=== PATIENT | male | born 1955 | race Caucasian/White ===

== ENCOUNTER → 2023-08-27 | Outpatient (CLI) | payer MEDICARE ==
--- NOTE | 2023-08-28 05:34 | MR ---
EXAMINATION TYPE: MR knee LT wo con DATE OF EXAM: 08/27/2023 COMPARISON: Outside left knee x-ray August 20, 2023 HISTORY: Left knee pain and swelling, Hx left knee surgery TECHNIQUE: Multiplanar, multisequence images of the knee is performed without IV contrast. FINDINGS: MEDIAL MENISCUS: Medial protrusion medial meniscus on coronal images. Abnormal signal central body ex tends into posterior horn. Posterior horn has fraying and increased signal extending to articular maria dolores face. LATERAL MENISCUS: Horizontal increased signal posterior horn toward the central body does not definit ively extend to articular surface. CRUCIATE LIGAMENTS: The anterior and posterior cruciate ligaments are intact and unremarkable. COLLATERAL LIGAMENTS: The medial collateral ligament and lateral collateral ligament complex are inta ct. Medial bulging medial collateral ligament with some thickening of the proximal fibers on coronal images. EXTENSOR MECHANISM: Visualized quadriceps and patellar tendons are intact. EFFUSION: Small to moderate-sized suprapatellar joint effusion. POPLITEAL CYST: Moderate sized septated popliteal/cervantes cyst with surrounding fluid. TRICOMPARTMENT SPACES: Moderate narrowing and spurring patellofemoral compartment. Mild to moderate n arrowing and mild spurring medial and lateral tibiofemoral compartments. CARTILAGE: Focal fissuring and cartilaginous loss posterior patellar pole inferiorly sagittal image 1 8 is noted. BONE MARROW SIGNAL: No focal abnormal marrow signal is appreciated. OTHER: No additional significant abnormality is appreciated. IMPRESSION: 1. Full-thickness tear posterior horn medial meniscus. 2. Intrasubstance tear posterior horn lateral meniscus. 3. Small to moderate size suprapatellar joint effusion. 4. Moderate-size leaking popliteal cyst. 5. Fairly moderate tricompartment degenerative changes are present as detailed above.
== END | disposition home or self-care (01) ==
LOC: RADMRIMAIN 12:56
PROVIDERS: ATTEND Orthopaedic Surgery
DX: S83.242A Other tear of medial meniscus, current injury, left knee, initial encounter (principal); S83.282A Other tear of lateral meniscus, current injury, left knee, initial encounter; M25.462 Effusion, left knee; M71.22 Synovial cyst of popliteal space [Baker], left knee; M17.12 Unilateral primary osteoarthritis, left knee

== ENCOUNTER 2023-09-19 09:03 | Day surgery (SDC) | payer MEDICARE ==
--- NOTE | 2023-09-18 13:24 | HP ---
HISTORY AND PHYSICAL DATE OF ANTICIPATED SURGERY: 09/19/2023. HISTORY OF PRESENT ILLNESS: Aaron Brar is a 68-year-old gentleman seen with progressive left knee pain. Options for treatment were discussed with him. He elected to proceed with left knee arthroscopy. Consent was obtained. PAST MEDICAL HISTORY: Hyperlipidemia, hypertension. PAST SURGICAL HISTORY: Left knee arthroscopy. DAILY MEDICATIONS: 1. Allopurinol. 2. Amlodipine. 3. Vitamins. ALLERGIES: None. SOCIAL HISTORY: Denies tobacco use. PHYSICAL EVALUATION OF LEFT KNEE: Range of motion is -2/120 degrees. There is a [id number] effusion present. He has tenderness along the medial lateral joint lines with positive medial Ruma's and a positive lateral Ruma's. Ligaments are stable. Hip rotation is without pain. His distal neurovascular exam is intact. IMAGING STUDIES: Radiographs of the left knee revealed moderate medial compartment osteoarthritis. MRI left knee revealed a medial and lateral meniscal tears, moderate arthritis and a popliteal cyst. IMPRESSION: 1. Internal derangement of left knee with medial lateral meniscal tears. 2. Hypertension. PLAN: Left knee arthroscopy with partial medial/lateral meniscectomy and debridement. MMODL / IJN: [id number] /
[~2023-09-19 09:03] MED LIST: LIDOCAINE 1% (10MG/ML) FOR IV START INTRADERMA PRN; MIDAZOLAM 2 MG/2 ML VIAL IV PRN
[2023-09-19] MEDS: LACTATED RINGERS 1,000 ML IV SCH (09:20)
[2023-09-19] MEDS ORDERED: ONDANSETRON 4 MG/2 ML VIAL ONE (09:41)
[2023-09-19 09:44] LABS: Glucose,Whole Blood 110 mg/dL (70-110)
[2023-09-19] MEDS: ONDANSETRON 4 MG/2 ML VIAL IVP ONE (09:45)
[2023-09-19] MEDS: DEXAMETHASONE SOD PHOSPHATE 4 MG/ML 1 ML VIAL IV ONE (09:45)
[2023-09-19] MEDS: MIDAZOLAM 2 MG/2 ML VIAL IVP ONE (09:56)
[2023-09-19] MEDS ORDERED: SUCCINYLCHOLINE CHLORIDE 200 MG/10 ML VIAL IV ONE (10:28)
[2023-09-19] MEDS ORDERED: PROPOFOL 10 MG/ML 20 ML VIAL IV ONE (10:28)
[2023-09-19] MEDS ORDERED: PHENYLEPHRINE-0.9% NACL SYG 1,000 MCG/10 ML SYRINGE ONE (10:28)
[2023-09-19] MEDS ORDERED: fentaNYL (PF) 50 MCG/ML 2 ML AMP ONE (10:28)
[2023-09-19] MEDS ORDERED: LIDOCAINE 1% INJ 10MG/ML (20 ML MDV) ONE (10:28)
[2023-09-19] MEDS ORDERED: MIDAZOLAM 2 MG/2 ML VIAL ONE (10:28)
[2023-09-19] MEDS: BUPIVACAINE (PF) 0.25% 30 ML VIAL INTRAARTIC ONE (10:30)
--- NOTE | 2023-09-19 11:21 | P.OP ---
Date of Procedure: 09/19/23 Preoperative Diagnosis: Internal derangement left knee Postoperative Diagnosis: 1. Tear medial and lateral meniscus left knee 2. Grade IV chondromalacia medial femoral condyle left knee 3. Grade IV chondromalacia femoral sulcus left knee 4. Reactive synovitis medial, lateral and suprapatellar compartments left knee Procedure(s) Performed: 1. Arthroscopic partial medial and lateral meniscectomy left knee 2. Arthroscopic microfracture medial femoral condyle left knee 3. Arthroscopic microfracture femoral sulcus left knee 4. Arthroscopic partial synovectomy medial, lateral and suprapatellar compartments left knee 5. Arthroscopic chondroplasty medial femoral condyle left knee Anesthesia: MELISSAA, local Surgeon: Napoleon Mejia Estimated Blood Loss (ml): 7 Pathology: none sent Condition: stable Disposition: PACU Indications for Procedure: 68-year-old gentleman seen with progressive left knee pain. After having treatment options discussed, he elected to proceed with arthroscopy. Operative Findings: See description of procedure Description of Procedure: Patient was taken to the operative suite. Patient underwent a general anesthetic by the department of anesthesia. Patient was given preoperative antibiotics. The left lower extremity was placed in a well-padded arthroscopic leg negron. The left leg was prepped and draped in the normal sterile orthopedic fashion. A lateral parapatellar and suprapatellar incision was made. Trochars were inserted. Arthroscopy was initiated. Suprapatellar pouch revealed diffuse thick reactive synovitis. The patellofemoral joint appeared to articulate congruently. There was grade I/II chondromalacia of the patella and grade III and IV chondromalacia changes of the femoral sulcus noting an area of exposed bone along the medial sulcus. The scope was guided into the medial gutter. No loose bodies or plica were identified. The scope was then guided into the medial compartment. A medial parapatellar incision was made. Trocar inserted followed by probe. There was a very large full-thickness osteochondral flap tear of the medial femoral condyle. There was a complex posterior horn medial meniscal tear present. There were grade II chondromalacia changes of the medial tibial plateau without tears. There was thick reactive synovitis anteriorly. I performed a chondroplasty of that medial femoral condyle getting down to stable osteochondral tissue. I performed a partial synovectomy decompressing the reactive synovitis. There was a large area of exposed bone along the weightbearing surface of the medial femoral condyle measuring about 2 x 2-1/2 cm. I introduced a microfracture awl and I performed 3 separate microfractures to that area of exposed bone medial femoral condyle penetrating the bone with resultant bleeding at the microfracture sites. The residual meniscus was probed and was found to be stable. The residual osteochondral surface was stable. There was good decompression of the synovitis. Scope and probe were then guided into the intercondylar notch. Cruciates were identified, probed and found to be stable. The scope and probe were then guided into lateral compartment. There was a radial tear involving the mid body of the lateral meniscus. There were grade I/II chondromalacia changes of the lateral compartment without tears. There was some thick reactive synovitis anteriorly. I performed a partial lateral meniscectomy getting down to stable meniscal tissue. I performed a partial synovectomy decompressing the reactive synovitis. The residual meniscus was stable. There was good decompression of the synov itis. The scope was in guided back into the suprapatellar compartment. I introduced a motorized shaver into the suprapatellar compartment. I debrided some piecemeal fragments of meniscus that I encountered. I performed a partial synovectomy. I now introduced a microfracture awl and performed a microfracture to the area of exposed bone along the medial femoral sulcus penetrating the bone with resultant bleeding at the microfracture site. That area of residual articular cartilage along the periphery was probed and was found to be stable. There was good decompression of the synovitis in the suprapatellar compartment. I now took 1 more look around the entire knee, no residual debris. Instruments were now removed from the joint. The joint was infiltrated with .25% Marcaine. Steri-Strips were applied to the portal sites. Sterile dressings were applied. The patient was placed into a NOLBERTO hose. No tourniquet was utilized. The patient was awakened, transferred to a bed and taken to recovery stable satisfactory condition.
[2023-09-19 11:34] VITALS: TEMP 96.8
[2023-09-19] MEDS: HYDROmorphone 0.5 MG/0.5 ML SYRINGE IVP PRN (11:39)
[2023-09-19] MEDS: HYDROmorphone 0.5 MG/0.5 ML SYRINGE IVP ONE (12:00)
[2023-09-19] MEDS: LACTATED RINGERS 1,000 ML IV ONE (12:16)
[2023-09-19 12:58] VITALS: BP 148/78; PULSE 78; RESP 18
== END 2023-09-19 13:31 | disposition home or self-care (01) ==
LOC: OR 09:03
PROVIDERS: ATTEND Orthopaedic Surgery
DX: S83.282A Other tear of lateral meniscus, current injury, left knee, initial encounter (principal); S83.242A Other tear of medial meniscus, current injury, left knee, initial encounter; M94.262 Chondromalacia, left knee; M65.862 Other synovitis and tenosynovitis, left lower leg; I10 Essential (primary) hypertension; E78.5 Hyperlipidemia, unspecified; Z79.899 Other long term (current) drug therapy; X58.XXXA Exposure to other specified factors, initial encounter
CPT/HCPCS: 29880; 29879; J2250; J0330; J1100; J0690; J2405; J2001; J3010; J2704; J1170; J2371; J0665